=== PATIENT | female | born 1945 | race Caucasian/White ===

== ENCOUNTER 2016-09-30 10:04 | Inpatient (IN) | payer MEDICARE, OTHER ==
--- NOTE | ~2016-09-30 | CN ---
Consultation Report [facility] [address] [place]. [address] NAME: DIANA FONTANA : 41 STATUS : ADM IN PAT#: [id number] AGE: 70 ADM/REG DATE : 09/30/16 MR#: [id number] REPORT SERV DATE: 10/03/16 DICTATED BY: EVER NOONAN DATE: 10/02/16 REPORT STATUS : Draft TRANSCRIBED BY: DYLAN DATE: 10/02/16 CONSULTATION NOTE DATE OF CONSULTATION: 10/02/2016 REQUESTING PROVIDER: Gamaliel Sanabria PA-C. REASON FOR CONSULTATION: Recurrent left pneumothorax. BRIEF HISTORY: This is a 70-year-old white female with a past medical history of previous left-sided pneumothorax, treated conservatively. She also has history of severe COPD, alpha 1 antitrypsin deficiency, chronic hypoxemic respiratory failure, diabetes mellitus, and diastolic congestive heart failure. She quit smoking many years ago. She presented to the emergency room at [facility] with left-sided chest pain and shortness of breath, which started on the . Upon further evaluation in the emergency room, chest x-ray revealed a left-sided pneumothorax. Chest tube was placed with fair re-expansion of the lung. CT of the chest was performed, which showed continued left-sided pneumothorax. We are asked to see her for possible VATS with talc pleurodesis. PAST MEDICAL HISTORY: Positive for COPD, on chronic oxygen at 2 to 3 L; previous spontaneous pneumothorax, treated with chest tube; previous lung abscess; alpha-1 antitrypsin deficiency; diabetes mellitus type 2, non-insulin dependent; hypertension; hypothyroidism; hyperlipidemia; dementia; compression fractures of T5 through L3; gastroesophageal reflux disease; anxiety; chronic constipation; and anemia. PAST SURGICAL HISTORY: Includes previous lumpectomy, right hip surgery, left chest tube placement. FAMILY HISTORY: Positive for a brother who had alpha-1 antitrypsin disorder and received a lung transplant at [facility]. She also had an aunt with Alzheimer's and a brother with essential tremor. SOCIAL HISTORY: The patient is currently , and previously worked in [employer] and had excessive exposures to airborne fibers. She smoked one to one-half pack per day for approximately 12 years, but quit in the 1970s. She does not drink alcohol or do any other illicit drugs. She currently lives in [place], [place]. ALLERGIES: SULFA AND CODEINE. HOME MEDICATIONS: Include Proventil HFA 6.7 g two puffs inhaled every four hours as needed, Proventil 3 mL inhaled solution one neb inhaled four times a day, Brovana 15 mcg inhaled twice daily, aspirin 81 mg p.o. daily, Lipitor 40 mg p.o. daily at bedtime, Pulmicort Respules 0.5 mg inhaled twice daily, Plavix 75 mg daily, Digoxin 0.125 mg p.o. daily, Cardizem 240 mg p.o. daily, ferrous sulfate 300 mg p.o. twice daily, Glucotrol XL 2.5 mg p.o. daily, levothyroxine 88 mcg p.o. daily, Prinivil 10 mg p.o. daily, Mag-Ox 400 mg p.o. Consultation Report [facility] [address] [place]. [address] NAME: DIANA FONTANA : 41 STATUS : ADM IN [facility]#: [id number] AGE: 70 ADM/REG DATE : 09/30/16 MR#: [id number] REPORT SERV DATE: 10/03/16 DICTATED BY: EVER NOONAN DATE: 10/02/16 REPORT STATUS : Draft TRANSCRIBED BY: DYLAN DATE: 10/02/16 daily, Prilosec 20 mg p.o. daily, prednisone 5 mg p.o. daily, Spiriva HandiHaler one cap inhaled daily. REVIEW OF SYSTEMS: Significant for pneumothorax, shortness of breath, anxiety, constipation, anemia, hypertension, COPD, alpha-1 antitrypsin disorder, home O2 use, gastroesophageal reflux disease. Complete 12-point review of systems done, all other systems negative except the above-mentioned pertinent positives in the history of present illness. PHYSICAL EXAMINATION: GENERAL: A 70-year-old white female, alert, in no acute distress. CONSTITUTIONAL/VITAL SIGNS: Systolic blood pressures in the 130s to 140s over diastolic in the 60s. Oxygen saturation 96% to 98% on 2 L. The patient is afebrile. Heart rate, normal sinus rhythm in the 90s. Respiratory rate 16 to 20 per minute. HEAD EARS, EYES, NOSE, AND THROAT: Normocephalic, atraumatic. Pupils equal, round and reactive to light. Ears, nose, and throat without drainage, lesions, or exudates noted. NECK: Supple with no lymphadenopathy, JVD, or bruits noted. Trachea midline with no obvious goiter. CHEST: Symmetrical bilateral movement. No obvious chest wall deformities noted. There is an indwelling left chest tube. CARDIOVASCULAR: Revealed regular rate and rhythm. S1, S2. No gallop, murmur, or rub. RESPIRATORY: With diminished breath sounds bilaterally. There is no use of accessory muscles noted. GASTROINTESTINAL: Abdomen is soft, nontender, and nondistended. Positive bowel sounds in all four quadrants. No hepatosplenomegaly noted. MUSCULOSKELETAL: With no significant bony abnormalities. There is normal range of motion in all four extremities. SKIN: Warm and dry with several scabs along her anterior tibia bilaterally. There is no other breakdown noted. Normal turgor. NEUROLOGIC: All 12 cranial nerves intact. No focal neurologic deficits noted. She moves all extremities x4. PSYCHIATRIC: The patient is alert and oriented with five ideals however. HEMATOLOGIC/LYMPHATIC: Without obvious petechiae or ecchymosis. There is no supraclavicular, cervical, or axillary lymphadenopathy noted. GENITOURINARY: The patient voids without difficulty. DATA: CT of the chest performed today showing continued pneumothorax in the left lung with an indwelling left chest tube. There is diffuse emphysematous changes consistent with her known alpha-1 antitrypsin disorder. LABORATORY DATA: Performed today with TEG 100%, white blood count 16.7, hemoglobin 11.1, hematocrit 36.3, platelet 175. Sodium 142, potassium 4.7, BUN 42, creatinine 0.85, glucose 63. Blood cultures dated 09/30/2016 negative to date. Consultation Report [facility] [id number] [facility] [place]. [address] NAME: DIANA FONTANA : 41 STATUS : ADM IN [facility]#: [id number] AGE: 70 ADM/REG DATE : 09/30/16 MR#: [id number] REPORT SERV DATE: 10/03/16 DICTATED BY: EVER NOONAN DATE: 10/02/16 REPORT STATUS : Draft TRANSCRIBED BY: MODOswaldo DATE: 10/02/16 PROBLEM LIST: 1. Recurrent left pneumothorax. 2. Chronic obstructive pulmonary disease. 3. Alpha-1 antitrypsin disorder. 4. Chronic hypoxemia, on home O2. 5. Hypothyroidism. 6. Nfh-wlvzopi-npspfgzbk diabetes mellitus, type 2. 7. Hypertension. 8. Gastroesophageal reflux disease. 9. Anemia. 10.Dementia. IMPRESSION AND PLAN: A 70-year-old white female with a second time recurrent pneumothorax on the left side. Despite placement of chest tube, she continues to have poor re-expansion of the left lung. Given her severe chronic obstructive pulmonary disease and alpha-1 antitrypsin disorder, she is probably best served to undergo a thoracoscopy with talc pleurodesis. She has been on Plavix up until two days ago and would certainly need to check a TEG prior to proceeding to ensure that she would be able to clot. We discussed the risks with the patient and her family and they are willing to proceed. They also understand the benefits and expected outcome of the procedure. We will continue to leave her n.p.o. pending her TEG and possibly proceed with surgery this afternoon. Dictated for Jr. YOUSIF Bond/DYLAN Ever Noonan NP / [id number] CC: Juan Garay MD
--- NOTE | ~2016-09-30 | OP ---
Record Of Operation [facility] [address] [place]. [address] NAME: DIANA FONTANA : 41 STATUS : ADM IN PAT#: [id number] AGE: 70 ADM/REG DATE : 09/30/16 MR#: [id number] REPORT SERV DATE: 10/02/16 DICTATED BY: JUNITO MYERS JR. DATE: 10/02/16 REPORT STATUS : Draft TRANSCRIBED BY: DYLAN DATE: 10/02/16 DATE OF PROCEDURE: 10/02/2016 PREOPERATIVE DIAGNOSES: Spontaneous secondary pneumothorax with persistent air leak, alpha-1 antitrypsin deficiency, coronary artery disease, and anxiety disorder. POSTOPERATIVE DIAGNOSES: Spontaneous secondary pneumothorax with persistent air leak, alpha- 1 antitrypsin deficiency, coronary artery disease, and anxiety disorder. NAME OF OPERATION: Bronchoscopy, left thoracoscopy with left lower lobe bullectomy, talc pleurodesis 7.5 g, and intercostal nerve block. SURGEON: Junito Myers M.D. RESIDENT SURGEON: Manuel Holder MD. BUSINESS SALES CONSULTANT: Mina Hendricks. ANESTHESIA: General endotracheal. ANESTHESIOLOGIST: Sha Wild M.D. FINDINGS: The patient was noted to have a chronically scarred and atelectatic left lower lobe. There was an air leak with a bullous lesion right at the fissure. We were able to resect this bullous lesion. The lung tissue quality was so poor that there still was an air leak there. We could not get the left lower lobe inflate. Repeat bronchoscopies were performed. There was a lot of blood, debris, and chronic material in the left lower lobe. I suspect this has been atelectatic for a while. We could not completely resolve the air leak. DETAILS OF OPERATION: After adequate general anesthesia, the patient was intubated with a left-sided double-lumen endotracheal tube. The left lung was isolated medially. The patient was then positioned in the right lateral decubitus position with the left chest prepped and draped in a routine sterile fashion. A small incision was made overlying the lower intercostal space. A separate anterior trocar incision was also made. Through these two incision sites, the above findings were noted. Saline was placed in chest cavity where we could see the air leak coming right at the fissure. There was a bullous lesion located right at this point. We elected to wedge this out. When trying to reinflate the lung, we could not get the lower lobe to inflate. There was still an air leak at the fissure that we could not control surgically. We placed talc in the chest cavity. An intercostal nerve block was performed. A 32-Portuguese chest tube was placed. Decision was made to close the trocar sites. She was placed in supine position where a single lumen tube was placed. A regular bronchoscopy was performed, cleaning debris of the left lower lobe. This is a very chronic fibrotic appearance to the lung tissue and bronchus. Incision made to stop at this point in time. The trocar incisions had been closed with Vicryl sutures. The skin was closed with running monofilament suture. A Dermabond dressing was applied. Procedure was Record Of Operation [address] [place]. [address] NAME: DIANA FONTANA : 41 STATUS : ADM IN [facility]#: [id number] AGE: 70 ADM/REG DATE : 09/30/16 MR#: [id number] REPORT SERV DATE: 10/02/16 DICTATED BY: JUNITO MYERS JR. DATE: 10/02/16 REPORT STATUS : Draft TRANSCRIBED BY: MODL DATE: 10/02/16 terminated at this point. The patient tolerated the procedure well but will return back to intensive care unit in stable condition. PATTI/DYLAN Junito Myers Jr., M.D. / [id number] CC: Rochelle Sims M.D.
--- NOTE | ~2016-09-30 | CN ---
Consultation Report [facility] [address] [place]. [address] NAME: NEHA FONTANA : 41 STATUS : ADM IN PAT#: [id number] AGE: 70 ADM/REG DATE : 09/30/16 MR#: [id number] REPORT SERV DATE: 10/01/16 DICTATED BY: GAMALIEL GALICIA DATE: 10/01/16 REPORT STATUS : Draft TRANSCRIBED BY: MODOswaldo DATE: 10/01/16 CONSULTATION DATE OF CONSULTATION: 10/01/2016 CHIEF COMPLAINT: Dyspnea and left-sided pleuritic pain in a patient with a secondary pneumothorax of the left chest. HISTORY OF PRESENT ILLNESS: Mrs. Neha Fontana is an ill-appearing 70-year-old white female with a past medical history significant for previous left-sided pneumothorax, COPD, alpha-1 antitrypsin deficiency, chronic hypoxemic respiratory failure, who presents to [facility]'s Emergency Room with complaints of worsening shortness of breath and left-sided pleuritic pain. It should be noted that Mrs. Fontana has not been hospitalized recently, and has done fairly well as an outpatient given the extent of her pulmonary disease. Mrs. Fontana has been previously seen in our outpatient clinic. She is frequently cancels her followup appointments. She is currently on 4 L of oxygen continuously. She is on a pulmonary regimen of albuterol, Brovana, Pulmicort, and Spiriva. She is on chronic prednisone as well. She denies symptomatology related to obstructive sleep apnea. The patient quit smoking in the 1970s. She has smoked approximately one and half packs a day for 12 years. She describes her exercise tolerance as being extremely limited, being only able to ambulate around her house before experiencing some degree of shortness of breath. Again, Mrs. Fontana is familiar to our Pulmonary Service. We have seen her in the past for exacerbations of COPD as well as a previous spontaneous left pneumothorax which was treated with chest tube intervention and subsequent removal. The patient has largely done well since this time. More recently, she had an acute onset of shortness of breath as well as concomitant left-sided pleuritic pain, which prompted her presentation to [facility]'s Emergency Room. Upon arrival, she was found to be normotensive and afebrile. She had good oxygenation on supplemental oxygen. She had a white blood cell count of 9500. Arterial blood gas was performed which revealed a pH of 7.42, PaCO2 of 49, PaO2 of 78, and a bicarb of 30.9. She did undergo a chest x-ray, which revealed a left pneumothorax. She did have a chest tube placed with near complete evacuation. For the aforementioned reasons, she has been referred to the Pulmonary Service for further assessment. Currently, Mrs. Fontana is on supplemental oxygen 2 to 3 L with appropriate oxygen sats. She does have a left-sided chest tube in place. There is an air leak appreciated. She does have some faint expiratory wheezing. She does have a periodic cough that is not producing a great deal of sputum. The patient currently denies any murmurs, angina, or palpitations. She denies any paroxysmal nocturnal dyspnea or edema. Consultation Report [facility] [address] [place]. [address] NAME: NEHA FONTANA : 41 STATUS : ADM IN [facility]#: [id number] AGE: 70 ADM/REG DATE : 09/30/16 MR#: [id number] REPORT SERV DATE: 10/01/16 DICTATED BY: GAMALIEL GALICIA DATE: 10/01/16 REPORT STATUS : Draft TRANSCRIBED BY: DYLAN DATE: 10/01/16 In regard to constitutional symptoms, she currently denies fever, chills, nausea, vomiting, chest pain, abdominal pain, or edema. PAST MEDICAL HISTORY: 1. COPD. 2. Previous lung abscess. 3. Chronic oxygen dependency. 4. Alpha-1 antitrypsin deficiency. 5. Diabetes. 6. Hypothyroidism. 7. Dyslipidemia. 8. Hypertension. 9. Gastroesophageal reflux disease. 10.Previous pneumonias. PAST SURGICAL HISTORY: 1. Hip fracture with surgical repair. 2. Lumpectomy of left breast for benign disease. FAMILY HISTORY: The patient states her brother had alpha-1 antitrypsin deficiency and received a lung transplant performed at [facility]. She states that he lived 12 years before he from complications. She knows of no other genetic testing in her family. SOCIAL HISTORY: The patient is currently . She has a son who is in good health. 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 She denies known exposures to dust or asbestos. TOBACCO/ALCOHOL: As previously mentioned, the patient quit smoking in 1970s, prior to this time, she smoked approximately one and half packs a day for a period of 12 years. She denies any recent alcohol or illicit drug use. MEDICATIONS: 1. Albuterol. 2. Brovana 15 mcg. 3. Aspirin. 4. Atorvastatin 40 mg. 5. Budesonide. 6. Pidogrel 75 mg. 7. Digoxin 0.125 mg. 8. Diltiazem 240 mg. 9. Ferrous sulfate 300 mg. 10.Glipizide 2.5 mg. 11.Levothyroxine 88 mcg. Consultation Report [facility] [id number] [place]. [address] NAME: NEHA FONTANA : 41 STATUS : ADM IN PAT#: [id number] AGE: 70 ADM/REG DATE : 09/30/16 MR#: [id number] REPORT SERV DATE: 10/01/16 DICTATED BY: GAMALIEL GALICIA DATE: 10/01/16 REPORT STATUS : Draft TRANSCRIBED BY: DYLAN DATE: 10/01/16 12.Lisinopril 10 mg. 13.Mag-Ox 400 mg. 14.Omeprazole 20 mg. 15.Prednisone 5 mg. 16.Spiriva. ALLERGIES: THE PATIENT HAS KNOWN ALLERGY TO SULFA AND CODEINE. REVIEW OF SYSTEMS: A complete review of systems was performed with pertinent positives and negatives contained within the body of the HPI. PHYSICAL EXAMINATION: VITAL SIGNS: Blood pressure is 137/61, heart rate 65, T-max is 98.1, respiratory rate is 16, and SpO2 is 96% on 4 L. GENERAL: The patient is a pleasant, well-nourished well-developed female who is not currently exhibiting any signs of acute distress. Skin: Skin with appropriate texture and turgor. No rashes, lesions, or ulcers. Nails are clear without cyanosis or clubbing. HEENT: Head: Skull is normocephalic/atraumatic. Facies symmetric. No masses or lesions. Eyes: Sclera anicteric, conjunctiva pink without exudates. Extra ocular movements intact. Pupils are equal, round, reactive to light. Ears: Auricles and tragus without pain to palpation. Hearing is grossly intact. Nose: Bilateral nasal patency. Sinuses without tenderness upon palpation. Throat: Dentition. Lips, oral mucosa, tongue, palate, and pharynx pink and moist without lesions. Uvula rises equally on phonation. Tongue midline without deviation. NECK: Neck supple. Trachea midline. No cervical lymphadenopathy appreciated. THORAX/LUNGS: Thorax is symmetric with equal chest rise. Breath sounds audible through entire field. No rales, wheezes, rhonchi. Left chest tube placement. CARDIOVASCULAR: Regular rate and rhythm. No murmurs, rubs, or gallops. Anterior chest without thrills, heaves, or lifts. ABDOMEN: Soft. Non-distended, non-tender. Active bowel sounds in all four quadrants. No hepatosplenomegaly noted. PERIPHERAL VASCULAR: No edema. No varicosities, stasis changes, open sores, ulcerations, or phlebitis. 2+ pulses in radial and dorsalis pedis. MUSCULOSKELETAL: Full AROM and PROM in all joints. No evidence of erythema, deformity, or crepitus. NEUROLOGIC: CN II - XII grossly intact. Good muscle bulk and tone bilaterally. Strength 5/5 throughout. PSYCHIATRIC: Patient demonstrates good judgment and insight. Pt is A&O x 3. ACCESSORY DATA: Reveals a white blood cell count of 8300, hemoglobin and hematocrit are 10.8 and 34.4. Chest x-ray reveals a residual apical pneumothorax in the left chest measuring 1.7 cm. Consultation Report [address] [place]. [address] NAME: NEHA FONTANA : 41 STATUS : ADM IN [facility]#: [id number] AGE: 70 ADM/REG DATE : 09/30/16 MR#: [id number] REPORT SERV DATE: 10/01/16 DICTATED BY: GAMALIEL GALICIA DATE: 10/01/16 REPORT STATUS : Draft TRANSCRIBED BY: MODL DATE: 10/01/16 IMPRESSION: 1. Secondary spontaneous left pneumothorax, status post chest tube placement. 2. Severe chronic obstructive pulmonary disease. 3. Bullous disease. PLAN: 1. As this is the second occurrence of a secondary spontaneous pneumothorax, we will consult our colleagues in Cardiothoracic Surgery for consideration of pleurodesis or even a VATS procedure for potential bullectomy. 2. In regard to the patient's severe COPD, we will place her on a full armamentarium of nebulized medications. The aforementioned impression and plan has been discussed with Dr. Orozco, who will follow further recommendations. We thank you for this consult and look forward to participating in the care of Mrs. Neha Fontana. GBS/MODL Gamaliel Galicia PA-C / [id number] CC: Juan Welch MD
--- NOTE | ~2016-09-30 | DS ---
Discharge Summary [facility] [address] [place]. [address] NAME: DIANA FONTANA : 41 STATUS : DIS IN PAT#: [id number] AGE: 70 ADM/REG DATE : 09/30/16 MR#: [id number] REPORT SERV DATE: 10/09/16 DICTATED BY: RADHA GORE DATE: 10/08/16 REPORT STATUS : Draft TRANSCRIBED BY: MODL DATE: 10/08/16 ADMISSION DATE: 09/30/2016 DISCHARGE DATE: 10/08/2016 DISCHARGE DIAGNOSES: 1. Status post pneumothorax left-sided. 2. Alpha-1 antitrypsin induced severe emphysema. 3. Acute on chronic respiratory failure. 4. due to respiratory failure. HOSPITAL COURSE: The patient had been admitted to the ICU, was seen by Thoracic Surgery, had done a procedure to re-expand her lung including chest tube placement. The patient was on mechanical ventilation. She was able to perform some wean maneuvers, but according to the patient's family, she did not want to be on prolonged mechanical support, and did not want tracheotomy. It was elected to reintubate her or perform CPR if she deteriorated. During her hospital stay, her electrolytes were within normal limits. Her creatinine was 0.5, platelets were slightly decreased to 95%. She had diabetes type 2 which was under control. She developed a mild thrombocytopenia. After a prolonged discussion with the family it was elected to undergo comfort measures and extubation. She was seen by Palliative Care on 10/07/2016 and the patient was extubated on 10/07/2016. She succumbed to respiratory failure at 1310 hours on 10/08/2015, and family was in attendance on 10/08/2016. During her hospital stay she was also getting her usual medications including Lanoxin, Cardizem, Vibramycin. RP/MODL Radha Gore M.D. / [id number] CC: Juan Yeh MD
--- NOTE | ~2016-09-30 | CN ---
Consultation Report [facility] [address] [place]. [address] NAME: DIANA FONTANA : 41 STATUS : ADM IN PAT#: [id number] AGE: 70 ADM/REG DATE : 09/30/16 MR#: [id number] REPORT SERV DATE: 10/03/16 DICTATED BY: DESIRAE BRADEN DATE: 10/03/16 REPORT STATUS : Draft TRANSCRIBED BY: MODL DATE: 10/03/16 CONSULT DATE OF CONSULTATION: 10/03/2016 HISTORY OF PRESENT ILLNESS: This is a 70-year-old patient I was asked to see by Dr. Myers for postop vent management and ICU care. The patient was admitted to the hospital on the 30 of September complaining of left-sided chest pain. She was found to have spontaneous pneumothorax and required chest tube placement. She has a known history of alpha-1 antitrypsin deficiency and COPD. She was followed by the Pulmonary Service on the floor and then subsequently was evaluated by CT Surgery and underwent bronchoscopy, left thoracoscopy with left lower lobe bullectomy and talc pleurodesis with intercostal nerve block on the 02 of October and failed to wean from the ventilator. ALLERGIES: HER ALLERGIES ARE TO SULFA AND CODEINE. CURRENT MEDICATIONS: Aspirin, Lanoxin, Cardizem, Vibramycin, ferrous sulfate, Glucotrol XL, subcu heparin for DVT prophylaxis, Synthroid, Prinivil, Protonix, Deltasone, Zoloft, and Spiriva. PAST MEDICAL HISTORY: Significant for: 1. Alpha-1 antitrypsin deficiency. 2. COPD. 3. Previous lung abscess. 4. Chronic oxygen dependency. 5. Hypothyroidism. 6. Type 2 diabetes mellitus. 7. Hypertension. 8. Dyslipidemia. 9. Gastroesophageal reflux disease. 10.History of previous pneumonias. SURGICAL HISTORY: Significant for hip fracture and lumpectomy of the left breast were turned out to be benign. SOCIAL HISTORY: Significant for smoking in the 70s, she no longer smokes. She is and does not drink alcohol. She previously worked in [employer] and has had excessive exposure to airborne fibers and dust. There is no known exposure to asbestos. FAMILY HISTORY: Significant for alpha-1 antitrypsin deficiency in her brother who has received a lung transplant at [place]. She is now but survived 12 years after this transplant. There is no other known family member that has alpha-1 antitrypsin deficiency. Consultation Report [facility] [id number] [place]. [address] NAME: DIANA FONTANA : 41 STATUS : ADM IN PAT#: [id number] AGE: 70 ADM/REG DATE : 09/30/16 MR#: [id number] REPORT SERV DATE: 10/03/16 DICTATED BY: DESIRAE BRADEN DATE: 10/03/16 REPORT STATUS : Draft TRANSCRIBED BY: DYLAN DATE: 10/03/16 REVIEW OF SYSTEMS: Review of systems cannot be obtained from the patient since she is orally intubated and sedated. PHYSICAL EXAMINATION: VITAL SIGNS: Her temp is 97.3, her blood pressure is 108/40 by A-line and 110/54 by cuff, heart rate is 67 and normal sinus rhythm. Current vent settings: She has tidal volume of 300, rate of 14, CMV 5 of PEEP, FiO2 of 40%. GENERAL: The patient is orally intubated, somewhat sedated, although very easily aroused and moves all extremities. HEENT: Head is atraumatic and normocephalic. Pupils are sluggishly reactive. Sclerae anicteric. Conjunctivae pink. Nasal mucosa is within normal limits. Oral mucosa is intubated. She has a left subclavian central line, left femoral A-line, and left chest tube. NECK: Supple without JVD, lymphadenopathy, or thyromegaly. The patient is extremely thin. LUNGS: Markedly diminished breath sounds at the bases with occasional crackles, especially on the left versus the right. Otherwise, her breath sounds are distant. CARDIAC EXAM: Reveals a regular rate and rhythm. No significant murmurs. BREASTS: Symmetrical without masses. ABDOMEN: Soft, nondistended. Bowel sounds are present, but diminished. No organosplenomegaly is appreciated. There is no tenderness to palpation of the abdomen. She has a Haley catheter in place. EXTREMITIES: Without cyanosis, clubbing, or edema. Pulses are palpable and symmetrical. NEUROLOGIC: Grossly nonfocal. DIAGNOSTIC DATA: ABG this morning shows a pH of 7.38, pCO2 of 50, pO2 of 110, bicarb of 28 on the above vent settings. Surgical cultures are pending. Chest x-ray postoperatively. It showed mild pulmonary vascular congestion. Endotracheal tube is in proper position. Chest tube is in place. Labs from this morning are pending. Yesterday's sodium was 141, potassium 4.4, chloride 101, bicarb 31, BUN 37, creatinine 0.72, glucose 96. CBC on , white cell count 10.8, hemoglobin 10, hematocrit 33, platelet count 154,000. ASSESSMENT AND PLAN: 1. This is a 70-year-old patient with known alpha-1 antitrypsin deficiency, who presents with left spontaneous pneumothorax and currently is status post bullectomy, VATS procedure, talc pleurodesis, who failed to wean from the ventilator. She has been left on the ventilator overnight with a plan to try and wean and extubate her today if possible. If she is not extubated, orogastric tube will need to be placed for medications and tube feedings and then further efforts would have to be made to extubate her. She will be continued on bronchodilator protocol. 2. Type 2 diabetes mellitus, sliding insulin scale. 3. Hypothyroidism. Continue Synthroid. The patient currently on steroids. Consider Consultation Report [facility] [id number] [facility] [place]. [address] NAME: DIANA FONTANA : 41 STATUS : ADM IN [facility]#: [id number] AGE: 70 ADM/REG DATE : 09/30/16 MR#: [id number] REPORT SERV DATE: 10/03/16 DICTATED BY: DESIRAE BRADEN DATE: 10/03/16 REPORT STATUS : Draft TRANSCRIBED BY: MODL DATE: 10/03/16 stress dose steroids if she becomes hypotensive. 4. History of diastolic congestive heart failure, stable. 5. DVT prophylaxis will be with subcutaneous heparin. We will follow patient with you. Thank you for your consultation. /DYLAN Desirae Braden M.D. / [id number] CC: Juan Garay MD
--- NOTE | ~2016-09-30 | HP ---
History And Physical [facility] [address] [place]. [address] NAME: DIANA FONTANA : 41 STATUS : ADM IN [facility]#: [id number] AGE: 70 ADM/REG DATE : 09/30/16 MR#: [id number] REPORT SERV DATE: 09/30/16 DICTATED BY: JESUS KUMAR DATE: 09/30/16 REPORT STATUS : Draft TRANSCRIBED BY: DYLAN DATE: 09/30/16 DATE OF ADMISSION: 09/30/2016 CHIEF COMPLAINT: Shortness of breath. Left-sided chest pain. HISTORY OF PRESENT ILLNESS: The patient is a very pleasant 70-year-old white female. She has a complex past medical history. She actually has a longstanding history of COPD and alpha-1 antitrypsin deficiency and previously smoked, today she reports yesterday evening around 5 o'clock, she developed left-sided chest pain and shortness of breath. She became quite dyspneic. Finally after struggling all night to breathe, she presented to [facility] ER via EMS. The patient had a similar episode in June 2015. At that time, she was diagnosed with a spontaneous pneumothorax. Here she was found to have a left-sided pneumothorax. Chest tube was placed and her lung re-expanded and her symptoms improved. She does have a slight cough with some sputum. She has chronic shortness of breath that she deals with day-to-day. She has had no documented fevers. She has had no abdominal pain. She has some slight chest pain at the site where she had the chest tube placed. Anyway, she has really had no new symptoms. PAST MEDICAL HISTORY: 1. COPD, on chronic O2 at home. 2. Previous spontaneous pneumothorax. 3. Alpha 1 antitrypsin deficiency. 4. Remote smoking. 5. Diabetes mellitus. 6. Hypertension. 7. Hypothyroidism. 8. Pneumonia. 9. Previous lung abscess. 10.Dementia. 11.Pansinusitis. 12.Compression fracture of T5 through L3. 13.GERD. 14.Elevated cholesterol. 15.Chronic constipation. 16.Anemia. 17.Anxiety. PAST SURGICAL HISTORY: She had a lumpectomy and a right hip surgery and a previous chest tube. ALLERGIES: SULFA AND CODEINE. SOCIAL HISTORY: She quit smoking in the 70s. She does not use alcohol. She is . She has a who is at the bedside. She lives in [place], [place]. FAMILY HISTORY: Positive for brother who had alpha-1 antitrypsin and actually ended up with History And Physical [address] [place]. [address] NAME: DIANA FONTANA : 41 STATUS : ADM IN PAT#: [id number] AGE: 70 ADM/REG DATE : 09/30/16 MR#: [id number] REPORT SERV DATE: 09/30/16 DICTATED BY: JESUS KUMAR DATE: 09/30/16 REPORT STATUS : Draft TRANSCRIBED BY: DYLAN DATE: 09/30/16 a lung transplant. She has an aunt with Alzheimer's and a brother who had an essential tremor. HOME MEDICATIONS: Reviewed and attached. REVIEW OF SYSTEMS: Full 10-point review of systems obtained. Pertinent positives already mentioned in the HPI. PHYSICAL EXAMINATION: VITAL SIGNS: Blood pressure 143/66, sats 98% on 2 L, temperature 98.4, pulse 94, and respiratory rate 15. GENERAL: Well-developed, frail-appearing white female. HEENT: Normocephalic, atraumatic. Throat is clear. NECK: Supple. HEART: Regular rate and rhythm. LUNGS: Grossly diminished in all lung kunz. ABDOMEN: Soft, nontender, and nondistended. EXTREMITIES: Warm and dry. SKIN: Intact. She does have several scabs along her anterior tibia bilaterally. Her states that she picks at the area and scratches it constantly. NEUROLOGIC: She is alert. She is oriented to person, place, and time. Mood and affect appropriate. She moves all four extremities. LAB DATA: ABG shows 7.42/49/78. CBC: H and H 11 and 35, white count is 9.5, and platelets are 109. Basic metabolic panel is essentially normal. LFTs are normal. Albumin is 2.9. Flu swab is negative. Initial chest x-ray showed a large left pneumothorax with left lung atelectasis. Followup after chest tube shows status post placement of a left chest tube. The pneumothorax is almost completely evacuated. ASSESSMENT/PLAN: 1. Spontaneous pneumothorax secondary to emphysema, alpha-1 antitrypsin deficiency, now with improvement after chest tube. We will have Pulmonary to see her and manage chest tube. We will obtain a chest x-ray in the morning. 2. COPD with possible exacerbation. We will place her on some steroids. Aggressive nebulized therapy. Some doxycycline. Obtain a sputum culture and follow her clinically. 3. History of diabetes mellitus. We will add some sliding scale to her medical regimen. 4. Anxiety. I am going to add some low-dose Zoloft. 5. History of hypertension. 6. History of congestive heart failure, diastolic, stable. 7. Deep venous thrombosis prophylaxis with subcutaneous heparin. 8. Disposition pending above aforementioned plan and workup. JUAN F/DYLAN History And Physical [address] [address] NAME: DIANA FONTANA : 41 STATUS : ADM IN [facility]#: [id number] AGE: 70 ADM/REG DATE : 09/30/16 MR#: [id number] REPORT SERV DATE: 09/30/16 DICTATED BY: JESUS KUMAR DATE: 09/30/16 REPORT STATUS : Draft TRANSCRIBED BY: DYLAN DATE: 09/30/16 Jesus Kumar M.D. / [id number] CC: Juan Welch MD
--- NOTE | ~2016-09-30 | OP ---
Record Of Operation [facility] [address] [place]. [address] NAME: DIANA FONTANA : 41 STATUS : ADM IN PAT#: [id number] AGE: 70 ADM/REG DATE : 09/30/16 MR#: [id number] REPORT SERV DATE: 09/30/16 DICTATED BY: LISA BABB DATE: 09/30/16 REPORT STATUS : Draft TRANSCRIBED BY: DYLAN DATE: 09/30/16 DATE OF PROCEDURE: 09/30/2016 PROCEDURE: Chest tube insertion. PROCEDURE IN DETAIL: The patient was presented with shortness of breath over the past three days of worsening significantly yesterday. She has a history of spontaneous pneumothorax in the past, requiring chest tube insertion on the left. A chest x-ray showed large left pneumothorax, so left-sided chest tube insertion was initiated. The patient was sat up, was comfortable. O2 sats were 94% on 4 L by nasal cannula. Using a PneumoDart kit, the left chest side wall was cleansed with ChloraPrep and draped in a sterile fashion. Using 1% lidocaine, T8 rib space was anesthetized in the mid axillary line and PneumoDart kit was used to advance PneumoDart catheter. After aspiration of air, the patient tolerated the procedure well with little pain during expansion with good bubble flow after being hooked up to suction. Chest x-ray has been called for. No immediate complications arose. The patient's O2 saturation arose as well with expansion of her left lung. FLOR/DYLAN Lisa Babb DO / [id number] CC: Zack Montgomery MD
[~2016-09-30 10:04] MED LIST: ASAB PO; B1100 PO; BESIVANCE0.6 % OPH; BROVANA15 MCG INH; CARDCD240 PO; CARTIA XT240 MG/24 PO; CEFT2 PO; CLEAR EYE1 OPH; DIGITEK0.125 MG PO; FESO4 PO; GLUCXL2.5 PO; HALF81 PO; L40 PO; LAN125 PO; LEVAQUIN750 MG PO; LEVOTHROID88 MCG PO; LEVOTHYROXIN88 MCG PO; LIPITOR40 PO; LOP25 PO; LOTEMAX OPH SUSP5 ML OPH; MAGOX4 PO; P10; P10 PO; P20 PO; P5 PO; PEPTO BISMOL UD30 ML PO; PLAVIX PO; PR25 PO; PRILO PO; PRIN10 PO; PRIN20 PO; PROAIR HFA INH; PROAIR HFA PO; PROLENSA1.6 ML OPH; PROVENTSOL INH; PROVHFA INH; PULRESP.5 INH; SPIRIVA INH; SPIRIVA RESPIMAT INH; SYMBICORT 160/41 INH INH; SYN88 PO; THEO24300 PO; TIAZA3 PO; ZOFRAN ODT4 MG PO; ZOFRAN4 PO
[2016-09-30 10:43] LABS: BE (BASE EXCESS) 5.4 MEQ/L (0 +/- 2.5); CARBOXYHEMOGLOBIN 0.8 % (0-3); DEVICE NC; HCO3 (ACTUAL BICARBONATE) 30.9 MEQ/L (23-27); HEMOBLOGIN CONTENT 11.9 G/DL (12-16); INSTRUMENT SERIAL # 8087; METHEMOGLOBIN 0.3 % (0-3); O2 CONTENT 15.9 VOL% (18-24); PCO2 (CO2 TENSION) 49 MMHG (35-45); PO2 (O2 TENSION) 78 MMHG (79-93); SAMPLE Arterial; pH 7.42 (7.37-7.43)
[2016-09-30 11:00] LABS: BASOPHILS 0.2 %; BASOPHILS ABSOLUTE 0.02 10/3/uL (0.0-0.16); EOSINOPHILS 0.8 %; EOSINOPHILS ABSOLUTE 0.08 10/3/uL (0.0-0.53); HEMATOCRIT 35.9 % (36.0-48.0); HEMOGLOBIN 11.2 g/dL (12.0-16.0); IMMATURE GRANULOCYTES 0.2 %; IMMATURE GRANULOCYTES ABSOLUTE 0.02 10/3/uL (0.0-0.11); LYMPHOCYTES 15.3 %; LYMPHOCYTES ABSOLUTE 1.45 10/3/uL (0.67-4.30); MEAN CORPUS HGB CONC 31.2 g/dL (32.0-36.0); MEAN CORPUSCULAR HEMOGLOB 29.8 pg (26.0-34.0); MEAN CORPUSCULAR VOLUME 95.5 fL (80-100); MEAN PLATELET VOLUME 11.5 fL (9.2-13.0); MONOCYTES 9.2 %; MONOCYTES ABSOLUTE 0.87 10/3/uL (0.21-1.20); NEUTROPHILS 74.3 %; NEUTROPHILS ABSOLUTE 7.02 10/3/uL (2.02-8.40); PLATELET COUNT 109 10/3/uL (150-400); RBC DISTRIBUTION WIDTH 16.5 % (12.0-16.0); RED CELL COUNT 3.76 10/6/uL (4.0-5.6)
[2016-09-30 11:02] LABS: MANUAL DIFF NO %; WHITE BLOOD CELLS 9.5 10/3/uL (4.5-10.5)
[2016-09-30 11:16] LABS: A/G RATIO 0.7 (0.7-1.9); ALBUMIN 2.9 G/DL (3.5-5.0); ALKALINE PHOSPHATASE 96 U/L (45-117); BUN (BLOOD UREA NITROGEN) 24 MG/DL (6-23); CALCIUM, SERUM 8.9 MG/DL (8.5-10.4); CHLORIDE, SERUM 103 MMOL/L (96-112); CO2 (CARBON DIOXIDE) 31 MMOL/L (24-34); GFR AFRICAN AMERICAN 106 ML/MIN (>=60); GFR NON AFRICAN AMERICAN 91 ML/MIN (>=60); GLOBULIN 4.1 G/DL (2.5-4.1); GLUCOSE, SERUM 91 MG/DL (60-99); POTASSIUM, SERUM 4.4 MMOL/L (3.5-5.3); SGPT(ALT) 28 U/L (5-65); SODIUM, SERUM 140 MMOL/L (135-148); TOTAL BILIRUBIN 0.6 MG/DL (0-1.2)
[2016-09-30 11:17] LABS: SGOT(AST) 39 U/L (5-40)
[2016-09-30 11:21] LABS: INFLUENZA A SCREEN NEGATIVE (NEGATIVE); INFLUENZA B SCREEN NEGATIVE (NEGATIVE)
[2016-09-30] MEDS ORDERED: P5 PO (12:17)
[2016-10-01 06:14] LABS: BASOPHILS 0 %; EOSINOPHILS 0 %; HEMATOCRIT 34.4 % (36.0-48.0); HEMOGLOBIN 10.8 g/dL (12.0-16.0); IMMATURE GRANULOCYTES 0.4 %; IMMATURE GRANULOCYTES ABSOLUTE 0.03 10/3/uL (0.0-0.11); LYMPHOCYTES 7.7 %; LYMPHOCYTES ABSOLUTE 0.64 10/3/uL (0.67-4.30); MEAN CORPUS HGB CONC 31.4 g/dL (32.0-36.0); MEAN CORPUSCULAR HEMOGLOB 29.8 pg (26.0-34.0); MEAN PLATELET VOLUME 11.5 fL (9.2-13.0); MONOCYTES 0.6 %; MONOCYTES ABSOLUTE 0.05 10/3/uL (0.21-1.20); NEUTROPHILS 91.3 %; NEUTROPHILS ABSOLUTE 7.54 10/3/uL (2.02-8.40); RED CELL COUNT 3.62 10/6/uL (4.0-5.6); WHITE BLOOD CELLS 8.3 10/3/uL (4.5-10.5)
[2016-10-01 06:15] LABS: MANUAL DIFF NO %; PLATELET COUNT 142 10/3/uL (150-400)
[2016-10-01 06:23] LABS: CALCIUM, SERUM 8.8 MG/DL (8.5-10.4); CHLORIDE, SERUM 99 MMOL/L (96-112); CO2 (CARBON DIOXIDE) 30 MMOL/L (24-34); CREATININE 0.81 MG/DL (0.55-1.02); GFR AFRICAN AMERICAN 84 ML/MIN (>=60); GFR NON AFRICAN AMERICAN 73 ML/MIN (>=60); POTASSIUM, SERUM 4.8 MMOL/L (3.5-5.3); SODIUM, SERUM 139 MMOL/L (135-148)
[2016-10-01 06:24] LABS: BUN (BLOOD UREA NITROGEN) 32 MG/DL (6-23); GLUCOSE, SERUM 183 MG/DL (60-99)
[2016-10-01 06:37] LABS: PLATELET ESTIMATE ADQ (ADEQUATE); RBC MORPHOLOGY NORM (NORMAL)
[2016-10-02 10:11] LABS: TEG - ANGLE 77.8 DEG (53-72); TEG - COAGULATION INDEX 4.6 (-3 TO 3); TEG - MAXIMUM AMPLITUDE 71.9 MM (50-70); TEG - RATE 3.1 MIN (5.0-10.0)
[2016-10-02 10:12] LABS: MAX AMP (ADP) 16.6 MM (35-68)
[2016-10-02 10:26] LABS: BASOPHILS 0.1 %; BASOPHILS ABSOLUTE 0.01 10/3/uL (0.0-0.16); EOSINOPHILS 0 %; HEMATOCRIT 36.3 % (36.0-48.0); HEMOGLOBIN 11.1 g/dL (12.0-16.0); IMMATURE GRANULOCYTES 0.3 %; IMMATURE GRANULOCYTES ABSOLUTE 0.05 10/3/uL (0.0-0.11); LYMPHOCYTES 10.4 %; LYMPHOCYTES ABSOLUTE 1.74 10/3/uL (0.67-4.30); MANUAL DIFF NO %; MEAN CORPUS HGB CONC 30.6 g/dL (32.0-36.0); MEAN CORPUSCULAR HEMOGLOB 29.4 pg (26.0-34.0); MEAN CORPUSCULAR VOLUME 96.3 fL (80-100); MONOCYTES 6.5 %; MONOCYTES ABSOLUTE 1.08 10/3/uL (0.21-1.20); NEUTROPHILS 82.7 %; NEUTROPHILS ABSOLUTE 13.85 10/3/uL (2.02-8.40); PLATELET COUNT 175 10/3/uL (150-400); RBC DISTRIBUTION WIDTH 16.8 % (12.0-16.0); RED CELL COUNT 3.77 10/6/uL (4.0-5.6); WHITE BLOOD CELLS 16.7 10/3/uL (4.5-10.5)
[2016-10-02 10:31] LABS: INTERNATIONAL NORMAL RATI 1.1 UNITS (-); PROTIME (NOT ORD) 14.3 SEC (12.0-14.5)
[2016-10-02 10:39] LABS: A/G RATIO 0.8 (0.7-1.9); ALKALINE PHOSPHATASE 88 U/L (45-117); CALCIUM, SERUM 9.2 MG/DL (8.5-10.4); CHLORIDE, SERUM 101 MMOL/L (96-112); CO2 (CARBON DIOXIDE) 34 MMOL/L (24-34); CREATININE 0.85 MG/DL (0.55-1.02); GFR AFRICAN AMERICAN 79 ML/MIN (>=60); GFR NON AFRICAN AMERICAN 68 ML/MIN (>=60); GLOBULIN 3.9 G/DL (2.5-4.1); POTASSIUM, SERUM 4.7 MMOL/L (3.5-5.3); SGOT(AST) 35 U/L (5-40); SGPT(ALT) 30 U/L (5-65); SODIUM, SERUM 142 MMOL/L (135-148); TOTAL BILIRUBIN 0.2 MG/DL (0-1.2); TOTAL PROTEIN 6.9 G/DL (6.0-8.5)
[2016-10-02 10:41] LABS: BUN (BLOOD UREA NITROGEN) 42 MG/DL (6-23); GLUCOSE, SERUM 63 MG/DL (60-99)
[2016-10-02 16:11] LABS: BASOPHILS 0 %; EOSINOPHILS 0 %; HEMATOCRIT 33.3 % (36.0-48.0); HEMOGLOBIN 10.3 g/dL (12.0-16.0); IMMATURE GRANULOCYTES 0.5 %; IMMATURE GRANULOCYTES ABSOLUTE 0.05 10/3/uL (0.0-0.11); LYMPHOCYTES ABSOLUTE 0.86 10/3/uL (0.67-4.30); MEAN CORPUS HGB CONC 30.9 g/dL (32.0-36.0); MEAN CORPUSCULAR HEMOGLOB 29.6 pg (26.0-34.0); MEAN CORPUSCULAR VOLUME 95.7 fL (80-100); MEAN PLATELET VOLUME 10.9 fL (9.2-13.0); MONOCYTES 3.3 %; MONOCYTES ABSOLUTE 0.35 10/3/uL (0.21-1.20); NEUTROPHILS 88.2 %; NEUTROPHILS ABSOLUTE 9.49 10/3/uL (2.02-8.40); PLATELET COUNT 154 10/3/uL (150-400); RBC DISTRIBUTION WIDTH 16.7 % (12.0-16.0); RED CELL COUNT 3.48 10/6/uL (4.0-5.6); WHITE BLOOD CELLS 10.8 10/3/uL (4.5-10.5)
[2016-10-02 16:13] LABS: MANUAL DIFF NO %
[2016-10-02 16:22] LABS: CALCIUM, SERUM 8.4 MG/DL (8.5-10.4); CHLORIDE, SERUM 101 MMOL/L (96-112); CO2 (CARBON DIOXIDE) 31 MMOL/L (24-34); CREATININE 0.72 MG/DL (0.55-1.02); GFR AFRICAN AMERICAN 97 ML/MIN (>=60); GFR NON AFRICAN AMERICAN 84 ML/MIN (>=60); POTASSIUM, SERUM 4.1 MMOL/L (3.5-5.3); SODIUM, SERUM 141 MMOL/L (135-148)
[2016-10-02 16:23] LABS: BUN (BLOOD UREA NITROGEN) 37 MG/DL (6-23); GLUCOSE, SERUM 96 MG/DL (60-99)
[2016-10-02 17:41] LABS: INSTRUMENT SERIAL # 11843
[2016-10-02 17:42] LABS: BE (BASE EXCESS) 2.8 MEQ/L (0 +/- 2.5); CARBOXYHEMOGLOBIN 0.2 % (0-3); HCO3 (ACTUAL BICARBONATE) 33.5 MEQ/L (23-27); HEMOBLOGIN CONTENT 12.9 G/DL (12-16); METHEMOGLOBIN 0.6 % (0-3); O2 CONTENT 15.6 VOL% (18-24); OPERATOR ID 32214; PCO2 (CO2 TENSION) 88 MMHG (35-45); PO2 (O2 TENSION) 64 MMHG (79-93); PRESSURE SUPPORT 10 cm.H2O; SAMPLE Arterial
[2016-10-02 19:05] LABS: BE (BASE EXCESS) 4.4 MEQ/L (0 +/- 2.5); CARBOXYHEMOGLOBIN 0.1 % (0-3); HCO3 (ACTUAL BICARBONATE) 33.9 MEQ/L (23-27); HEMOBLOGIN CONTENT 11.8 G/DL (12-16); INSTRUMENT SERIAL # 11843; METHEMOGLOBIN 0.5 % (0-3); MODE CMV; O2 CONTENT 16.2 VOL% (18-24); OPERATOR ID 32214; PCO2 (CO2 TENSION) 80 MMHG (35-45); PO2 (O2 TENSION) 115 MMHG (79-93); PRESSURE SUPPORT 0 cm.H2O; SAMPLE Arterial; TIDAL VOLUME 300 ML; pH 7.25 (7.37-7.43)
[2016-10-03 03:09] LABS: BE (BASE EXCESS) 2.9 MEQ/L (0 +/- 2.5); HCO3 (ACTUAL BICARBONATE) 28.7 MEQ/L (23-27); INSTRUMENT SERIAL # 11843; PCO2 (CO2 TENSION) 50 MMHG (35-45); PO2 (O2 TENSION) 110 MMHG (79-93); pH 7.38 (7.37-7.43)
[2016-10-03 03:10] LABS: CARBOXYHEMOGLOBIN 0.4 % (0-3); HEMOBLOGIN CONTENT 11.8 G/DL (12-16); METHEMOGLOBIN 0.5 % (0-3); MODE CMV; O2 CONTENT 16.2 VOL% (18-24); OPERATOR ID 13415; SAMPLE Arterial; TIDAL VOLUME 300 ML
[2016-10-03 04:08] LABS: BASOPHILS 0 %; EOSINOPHILS 0 %; HEMATOCRIT 33.1 % (36.0-48.0); HEMOGLOBIN 10.2 g/dL (12.0-16.0); IMMATURE GRANULOCYTES 0.2 %; IMMATURE GRANULOCYTES ABSOLUTE 0.02 10/3/uL (0.0-0.11); LYMPHOCYTES 7.1 %; LYMPHOCYTES ABSOLUTE 0.73 10/3/uL (0.67-4.30); MEAN CORPUS HGB CONC 30.8 g/dL (32.0-36.0); MEAN CORPUSCULAR HEMOGLOB 29.6 pg (26.0-34.0); MEAN CORPUSCULAR VOLUME 95.9 fL (80-100); MONOCYTES 5.9 %; MONOCYTES ABSOLUTE 0.61 10/3/uL (0.21-1.20); NEUTROPHILS 86.8 %; NEUTROPHILS ABSOLUTE 8.91 10/3/uL (2.02-8.40); PLATELET COUNT 125 10/3/uL (150-400); RBC DISTRIBUTION WIDTH 16.6 % (12.0-16.0); RED CELL COUNT 3.45 10/6/uL (4.0-5.6); WHITE BLOOD CELLS 10.3 10/3/uL (4.5-10.5)
[2016-10-03 04:10] LABS: MANUAL DIFF NO %
[2016-10-03 04:26] LABS: CALCIUM, SERUM 8.1 MG/DL (8.5-10.4); CHLORIDE, SERUM 102 MMOL/L (96-112); CO2 (CARBON DIOXIDE) 28 MMOL/L (24-34); GFR AFRICAN AMERICAN 100 ML/MIN (>=60); GFR NON AFRICAN AMERICAN 87 ML/MIN (>=60); PHOSPHORUS, SERUM 2.7 MG/DL (2.5-4.5); POTASSIUM, SERUM 4.9 MMOL/L (3.5-5.3); SODIUM, SERUM 139 MMOL/L (135-148)
[2016-10-03 04:29] LABS: BUN (BLOOD UREA NITROGEN) 41 MG/DL (6-23); GLUCOSE, SERUM 208 MG/DL (60-99)
[2016-10-03 05:21] LABS: ULTRASENSITIVE TSH 0.915 MCIU/ML (0.358-3.740)
[2016-10-04 03:18] LABS: INSTRUMENT SERIAL # 11843
[2016-10-04 03:19] LABS: BE (BASE EXCESS) 3.6 MEQ/L (0 +/- 2.5); CARBOXYHEMOGLOBIN 0.3 % (0-3); HCO3 (ACTUAL BICARBONATE) 29.3 MEQ/L (23-27); METHEMOGLOBIN 0.6 % (0-3); MODE CMV; O2 CONTENT 15.1 VOL% (18-24); OPERATOR ID 13415; PCO2 (CO2 TENSION) 49 MMHG (35-45); PO2 (O2 TENSION) 111 MMHG (79-93); SAMPLE Arterial; TIDAL VOLUME 300 ML; pH 7.39 (7.37-7.43)
[2016-10-04 03:55] LABS: BASOPHILS 0 %; EOSINOPHILS 0 %; HEMOGLOBIN 9.6 g/dL (12.0-16.0); IMMATURE GRANULOCYTES 0.1 %; IMMATURE GRANULOCYTES ABSOLUTE 0.01 10/3/uL (0.0-0.11); LYMPHOCYTES 7.7 %; MEAN CORPUSCULAR HEMOGLOB 29.1 pg (26.0-34.0); MEAN CORPUSCULAR VOLUME 93.9 fL (80-100); MEAN PLATELET VOLUME 11.3 fL (9.2-13.0); MONOCYTES 5.8 %; MONOCYTES ABSOLUTE 0.45 10/3/uL (0.21-1.20); NEUTROPHILS 86.4 %; NEUTROPHILS ABSOLUTE 6.73 10/3/uL (2.02-8.40); PLATELET COUNT 95 10/3/uL (150-400); WHITE BLOOD CELLS 7.8 10/3/uL (4.5-10.5)
[2016-10-04 04:05] LABS: MANUAL DIFF NO %
[2016-10-04 04:14] LABS: CALCIUM, SERUM 8.3 MG/DL (8.5-10.4); CHLORIDE, SERUM 105 MMOL/L (96-112); CO2 (CARBON DIOXIDE) 28 MMOL/L (24-34); GFR AFRICAN AMERICAN 112 ML/MIN (>=60); GFR NON AFRICAN AMERICAN 97 ML/MIN (>=60); GLUCOSE, SERUM 212 MG/DL (60-99); POTASSIUM, SERUM 4.7 MMOL/L (3.5-5.3); SODIUM, SERUM 143 MMOL/L (135-148)
[2016-10-04 04:15] LABS: BUN (BLOOD UREA NITROGEN) 23 MG/DL (6-23)
[2016-10-04 15:32] LABS: BASOPHILS 0 %; EOSINOPHILS 0 %; HEMATOCRIT 31.9 % (36.0-48.0); HEMOGLOBIN 10.1 g/dL (12.0-16.0); IMMATURE GRANULOCYTES 0.4 %; IMMATURE GRANULOCYTES ABSOLUTE 0.05 10/3/uL (0.0-0.11); LYMPHOCYTES 5.9 %; LYMPHOCYTES ABSOLUTE 0.84 10/3/uL (0.67-4.30); MEAN CORPUS HGB CONC 31.7 g/dL (32.0-36.0); MEAN CORPUSCULAR HEMOGLOB 29.7 pg (26.0-34.0); MEAN CORPUSCULAR VOLUME 93.8 fL (80-100); MEAN PLATELET VOLUME 11.5 fL (9.2-13.0); MONOCYTES 4.2 %; NEUTROPHILS 89.5 %; NEUTROPHILS ABSOLUTE 12.71 10/3/uL (2.02-8.40); RBC DISTRIBUTION WIDTH 17.1 % (12.0-16.0)
[2016-10-04 15:33] LABS: MANUAL DIFF NO %; PLATELET COUNT 141 10/3/uL (150-400); WHITE BLOOD CELLS 14.2 10/3/uL (4.5-10.5)
[2016-10-04 23:05] LABS: BASOPHILS 0.1 %; BASOPHILS ABSOLUTE 0.01 10/3/uL (0.0-0.16); EOSINOPHILS 0 %; HEMATOCRIT 33.4 % (36.0-48.0); HEMOGLOBIN 10.3 g/dL (12.0-16.0); IMMATURE GRANULOCYTES 0.5 %; LYMPHOCYTES 8.5 %; MEAN CORPUS HGB CONC 30.8 g/dL (32.0-36.0); MEAN CORPUSCULAR HEMOGLOB 29.2 pg (26.0-34.0); MEAN CORPUSCULAR VOLUME 94.6 fL (80-100); MEAN PLATELET VOLUME 11.5 fL (9.2-13.0); MONOCYTES 5.3 %; NEUTROPHILS 85.6 %; NEUTROPHILS ABSOLUTE 16.13 10/3/uL (2.02-8.40); RBC DISTRIBUTION WIDTH 17.4 % (12.0-16.0); RED CELL COUNT 3.53 10/6/uL (4.0-5.6); WHITE BLOOD CELLS 18.8 10/3/uL (4.5-10.5)
[2016-10-04 23:10] LABS: MANUAL DIFF NO %; PLATELET COUNT 190 10/3/uL (150-400)
[2016-10-04 23:12] LABS: BUN (BLOOD UREA NITROGEN) 24 MG/DL (6-23); CALCIUM, SERUM 8.3 MG/DL (8.5-10.4); CHLORIDE, SERUM 104 MMOL/L (96-112); CO2 (CARBON DIOXIDE) 29 MMOL/L (24-34); CREATININE 0.46 MG/DL (0.55-1.02); GFR AFRICAN AMERICAN 115 ML/MIN (>=60); GFR NON AFRICAN AMERICAN 99 ML/MIN (>=60); GLUCOSE, SERUM 201 MG/DL (60-99); POTASSIUM, SERUM 4.8 MMOL/L (3.5-5.3); SODIUM, SERUM 141 MMOL/L (135-148)
[2016-10-05 04:13] LABS: BASOPHILS 0.1 %; BASOPHILS ABSOLUTE 0.02 10/3/uL (0.0-0.16); EOSINOPHILS 0 %; HEMATOCRIT 33.7 % (36.0-48.0); HEMOGLOBIN 10.6 g/dL (12.0-16.0); IMMATURE GRANULOCYTES 0.6 %; IMMATURE GRANULOCYTES ABSOLUTE 0.13 10/3/uL (0.0-0.11); LYMPHOCYTES 11.7 %; LYMPHOCYTES ABSOLUTE 2.59 10/3/uL (0.67-4.30); MANUAL DIFF NO %; MEAN CORPUS HGB CONC 31.5 g/dL (32.0-36.0); MEAN CORPUSCULAR HEMOGLOB 29.9 pg (26.0-34.0); MEAN CORPUSCULAR VOLUME 94.9 fL (80-100); MEAN PLATELET VOLUME 10.8 fL (9.2-13.0); MONOCYTES 6.1 %; MONOCYTES ABSOLUTE 1.35 10/3/uL (0.21-1.20); NEUTROPHILS 81.5 %; NEUTROPHILS ABSOLUTE 18.08 10/3/uL (2.02-8.40); PLATELET COUNT 201 10/3/uL (150-400); RBC DISTRIBUTION WIDTH 17.2 % (12.0-16.0); RED CELL COUNT 3.55 10/6/uL (4.0-5.6); WHITE BLOOD CELLS 22.2 10/3/uL (4.5-10.5)
[2016-10-05 04:37] LABS: BUN (BLOOD UREA NITROGEN) 21 MG/DL (6-23); CALCIUM, SERUM 8.3 MG/DL (8.5-10.4); CHLORIDE, SERUM 105 MMOL/L (96-112); CO2 (CARBON DIOXIDE) 29 MMOL/L (24-34); GFR AFRICAN AMERICAN 121 ML/MIN (>=60); GFR NON AFRICAN AMERICAN 104 ML/MIN (>=60); GLUCOSE, SERUM 163 MG/DL (60-99); POTASSIUM, SERUM 4.9 MMOL/L (3.5-5.3); SODIUM, SERUM 140 MMOL/L (135-148)
[2016-10-05 04:39] LABS: ALBUMIN 2.2 G/DL (3.5-5.0)
[2016-10-06 04:28] LABS: BASOPHILS 0.1 %; BASOPHILS ABSOLUTE 0.01 10/3/uL (0.0-0.16); EOSINOPHILS 0.2 %; EOSINOPHILS ABSOLUTE 0.03 10/3/uL (0.0-0.53); HEMATOCRIT 33.6 % (36.0-48.0); HEMOGLOBIN 10.2 g/dL (12.0-16.0); IMMATURE GRANULOCYTES 0.5 %; IMMATURE GRANULOCYTES ABSOLUTE 0.07 10/3/uL (0.0-0.11); LYMPHOCYTES 18.7 %; LYMPHOCYTES ABSOLUTE 2.83 10/3/uL (0.67-4.30); MEAN CORPUS HGB CONC 30.4 g/dL (32.0-36.0); MEAN CORPUSCULAR HEMOGLOB 28.3 pg (26.0-34.0); MEAN CORPUSCULAR VOLUME 93.3 fL (80-100); MONOCYTES 7.7 %; MONOCYTES ABSOLUTE 1.17 10/3/uL (0.21-1.20); NEUTROPHILS 72.8 %; NEUTROPHILS ABSOLUTE 10.99 10/3/uL (2.02-8.40); PLATELET COUNT 192 10/3/uL (150-400); RBC DISTRIBUTION WIDTH 17.6 % (12.0-16.0); WHITE BLOOD CELLS 15.1 10/3/uL (4.5-10.5)
[2016-10-06 04:31] LABS: MANUAL DIFF NO %
[2016-10-06 04:34] LABS: CALCIUM, SERUM 8.1 MG/DL (8.5-10.4); CHLORIDE, SERUM 102 MMOL/L (96-112); CO2 (CARBON DIOXIDE) 29 MMOL/L (24-34); CREATININE 0.35 MG/DL (0.55-1.02); GFR AFRICAN AMERICAN 126 ML/MIN (>=60); GFR NON AFRICAN AMERICAN 109 ML/MIN (>=60); PHOSPHORUS, SERUM 2.6 MG/DL (2.5-4.5); POTASSIUM, SERUM 4.7 MMOL/L (3.5-5.3); SODIUM, SERUM 140 MMOL/L (135-148)
[2016-10-06 04:35] LABS: BUN (BLOOD UREA NITROGEN) 25 MG/DL (6-23); GLUCOSE, SERUM 122 MG/DL (60-99)
[2016-10-07 04:31] LABS: BASOPHILS 0.1 %; BASOPHILS ABSOLUTE 0.01 10/3/uL (0.0-0.16); EOSINOPHILS 0.7 %; EOSINOPHILS ABSOLUTE 0.12 10/3/uL (0.0-0.53); HEMATOCRIT 33.4 % (36.0-48.0); HEMOGLOBIN 10.3 g/dL (12.0-16.0); IMMATURE GRANULOCYTES 0.6 %; IMMATURE GRANULOCYTES ABSOLUTE 0.11 10/3/uL (0.0-0.11); LYMPHOCYTES 26.6 %; LYMPHOCYTES ABSOLUTE 4.81 10/3/uL (0.67-4.30); MEAN CORPUS HGB CONC 30.8 g/dL (32.0-36.0); MEAN CORPUSCULAR HEMOGLOB 28.7 pg (26.0-34.0); MONOCYTES 8.4 %; MONOCYTES ABSOLUTE 1.52 10/3/uL (0.21-1.20); NEUTROPHILS 63.6 %; NEUTROPHILS ABSOLUTE 11.53 10/3/uL (2.02-8.40); PLATELET COUNT 233 10/3/uL (150-400); RBC DISTRIBUTION WIDTH 17.7 % (12.0-16.0); RED CELL COUNT 3.59 10/6/uL (4.0-5.6); WHITE BLOOD CELLS 18.1 10/3/uL (4.5-10.5)
[2016-10-07 04:37] LABS: MANUAL DIFF NO %
[2016-10-07 04:56] LABS: A/G RATIO 0.5 (0.7-1.9); ALBUMIN 1.9 G/DL (3.5-5.0); ALKALINE PHOSPHATASE 90 U/L (45-117); CALCIUM, SERUM 8.2 MG/DL (8.5-10.4); CHLORIDE, SERUM 100 MMOL/L (96-112); CO2 (CARBON DIOXIDE) 29 MMOL/L (24-34); GFR AFRICAN AMERICAN 121 ML/MIN (>=60); GFR NON AFRICAN AMERICAN 104 ML/MIN (>=60); GLOBULIN 3.5 G/DL (2.5-4.1); POTASSIUM, SERUM 4.6 MMOL/L (3.5-5.3); SGOT(AST) 33 U/L (5-40); SGPT(ALT) 33 U/L (5-65); SODIUM, SERUM 138 MMOL/L (135-148); TOTAL BILIRUBIN 0.5 MG/DL (0-1.2)
[2016-10-07 04:57] LABS: BUN (BLOOD UREA NITROGEN) 33 MG/DL (6-23); GLUCOSE, SERUM 88 MG/DL (60-99); TOTAL PROTEIN 5.4 G/DL (6.0-8.5)
== END 2016-10-08 16:30 | disposition expired | DRG 163 ==
LOC: ER 10:04 → ER/OF 15:35 → 5SO 16:01 → SDC/OF 10-02 12:47 → PACU 10-02 15:42 → CVICU 10-02 18:32
PROVIDERS: Hospitalist; Internal Medicine; Internal Medicine Critical Care Medicine; Internal Medicine Pulmonary Disease; Thoracic Surgery (Cardiothoracic Vascular Surgery)
DX: J43.9 Emphysema, unspecified (principal); J96.21 Acute and chronic respiratory failure with hypoxia; J93.12 Secondary spontaneous pneumothorax; I50.32 Chronic diastolic (congestive) heart failure; E88.01 Alpha-1-antitrypsin deficiency; I11.0 Hypertensive heart disease with heart failure; D69.6 Thrombocytopenia, unspecified; J95.821 Acute postprocedural respiratory failure; J98.19 Other pulmonary collapse; J84.10 Pulmonary fibrosis, unspecified; F03.90 Unspecified dementia, unspecified severity, without behavioral disturbance, psychotic disturbance, mood disturbance, and anxiety; Z66 Do not resuscitate; Z51.5 Encounter for palliative care; Z99.81 Dependence on supplemental oxygen; E11.9 Type 2 diabetes mellitus without complications; F41.9 Anxiety disorder, unspecified; E03.9 Hypothyroidism, unspecified; K21.9 Gastro-esophageal reflux disease without esophagitis; K59.00 Constipation, unspecified; F17.210 Nicotine dependence, cigarettes, uncomplicated; Z88.2 Allergy status to sulfonamides; Z87.01 Personal history of pneumonia (recurrent); Z88.5 Allergy status to narcotic agent; Z79.899 Other long term (current) drug therapy; Z79.84 Long term (current) use of oral hypoglycemic drugs; Z79.82 Long term (current) use of aspirin
CPT/HCPCS: 31720; 36415; 36600; 71010; 71020; 71250; 74000; 80048; 80053; 80069; 80162; 82805; 82962; 83735; 84100; 84443; 85025; 85347; 85384; 85576; 85576-59; 85610; 86850; 86900; 86901; 86920; 87015; 87040; 87070; 87075; 87102; 87116; 87150; 87205; 87804; 88307; 88341; 88342; 88360; 93005; 94002; 94003; 94640; 94660; 94770; 96374; 99285; A9270-GY; C1894; C9113; J0330; J0690; J2250; J2370; J2405; J2710; J2795; J2930; J3010; P9045